=== PATIENT | female | born 1975 | race Native Hawaiian/Other Pacific Islander ===

== ENCOUNTER 2022-10-04 08:39 | Outpatient (CLI) | payer BC | END 2022-10-04 19:44 | disposition home or self-care (01) | LOC: US 08:39 | PROVIDERS: ATTEND Internal Medicine | DX: R14.0 Abdominal distension (gaseous) (principal); R10.11 Right upper quadrant pain ==

== ENCOUNTER 2022-10-20 07:43 | Outpatient (CLI) | payer BC | END 2022-10-20 18:57 | disposition home or self-care (01) | LOC: CT 07:43 | PROVIDERS: ATTEND Internal Medicine | DX: R93.2 Abnormal findings on diagnostic imaging of liver and biliary tract (principal) | CPT/HCPCS: 36415; 82565; 84520; Q9963 ==